=== PATIENT | male | born 1965 | race Caucasian/White ===

== ENCOUNTER → 2018-06-24 | Outpatient (CLI) | payer BC | LOC: BMCIMAGING 16:25 | PROVIDERS: ATTEND Emergency Medicine | DX: N62 Hypertrophy of breast (principal) ==

== ENCOUNTER → 2018-06-25 | Outpatient (CLI) | payer BC | LOC: FIMAGING 12:52 | PROVIDERS: ATTEND Emergency Medicine | DX: N62 Hypertrophy of breast (principal) ==